=== PATIENT | male | born 1980 | race Caucasian/White ===

== ENCOUNTER 2018-10-28 10:23 | Emergency (ER) | payer OTHER ==
[2018-10-28] MEDS: NS 0.9% 1000 ML** 1,000 ML IV ONE ×2 (11:05→12:16)
[2018-10-28] MEDS: Ondansetron INJ* 2 MG/ML VIAL IV ONE (11:06)
--- NOTE | 2018-10-28 11:10 | ED ---
Nausea/Vomiting/Diarrhea HPI - HPI Summary HPI Summary: Patient is an otherwise healthy 37-year-old male who presents to the ED with a 40 hour history of nausea, vomiting, diarrhea. He states the last episode of emesis was this morning upon awakening, however previous to that it was approximately every 2-3 hours. He is endorsing diarrhea every hour. He had similar symptoms approximately 3 years ago and needed to come to the ED at that time to replete his fluids. He states he felt immediately better following this. He denies any recent illness otherwise. He states symptoms began after his and daughter were ill. He denies any abdominal pain. He denies any diarrhea which is malodorous or green or yellow in color. Denies recent antibiotic use. Denies any CP or SOB. Denies any fevers, however has been endorsing sweats and chills. He endorses extreme fatigue secondary to the nausea and vomiting. He has been unable to keep food or liquid down 40 hours. Last by mouth intake was approximately 4 hours ago in which he tried to drink a small amount of water and eat some toast. Patient is otherwise healthy and takes no medications. Denies allergies. - History of Current Complaint Chief Complaint: EDNauseaVomitDiarrh Stated Complaint: DIARRHEA COMMING FROM DOC OFFICE PER PT Time Seen by Provider: 10/28/18 10:37 Hx Obtained From: Patient Onset/Duration: Gradual Onset Timing: Constant Severity Initially: Moderate Severity Currently: Moderate Pain Intensity: 3 Pain Scale Used: 0-10 Numeric Aggravating Factor(s): Food Alleviating Factor(s): Nothing Vomiting Frequency: Every 3-4 hours Nausea/Vomiting Duration: 24-36 hours Diarrhea Presence: Yes Diarrhea Frequency: Every 1-2 hours Diarrhea Duration: 24-36 hours - Risk Factors Influenza Risk Factors: Negative - Allergies/Home Medications Allergies/Adverse Reactions: Allergies Allergy/AdvReac Type Severity Reaction Status Date / Time No Known Allergies Allergy Verified 10/28/18 10:29 Home Medications: Home Medications NK [No Home Medications Reported] 10/28/18 [History Confirmed 10/28/18] PMH/Surg Hx/FS Hx/Imm Hx Previously Healthy: Yes - Immunization History Hx Pertussis Vaccination: No Immunizations Up to Date: Yes Infectious Disease History: No Infectious Disease History: Denies: Traveled Outside the [place] in Last 30 Days - Social History Occupation: Employed Full-time Lives: With Family Alcohol Use: Weekly Hx Substance Use: No Substance Use Type: Reports: None Hx Tobacco Use: No Smoking Status (MU): Never Smoked Tobacco Review of Systems Constitutional: Negative Negative: Fever, Chills, Fatigue, Skin Diaphoresis Negative: Palpitations, Chest Pain Negative: Shortness Of Breath, Cough Positive: Vomiting, Diarrhea Negative: Arthralgia, Myalgia Negative: Rash, Bruising Neurological: Negative All Other Systems Reviewed And Are Negative: Yes Physical Exam Triage Information Reviewed: Yes Vital Signs On Initial Exam: Initial Vitals Temp Pulse Resp BP Pulse Ox 97.1 F 78 18 130/97 98 10/28/18 10:28 10/28/18 10:28 10/28/18 10:28 10/28/18 10:28 10/28/18 10:28 Vital Signs Reviewed: Yes Appearance: Positive: Well-Appearing, Well-Nourished Skin: Positive: Skin Color Reflects Adequate Perfusion Head/Face: Positive: Normal Head/Face Inspection Eyes: Positive: EOMI, Conjunctiva Clear Neck: Positive: Supple, No Lymphadenopathy Respiratory/Lung Sounds: Positive: Clear to Auscultation, Breath Sounds Present Cardiovascular: Positive: RRR, Pulses are Symmetrical in both Upper and Lower Extremities Musculoskeletal: Positive: Normal, Strength/ROM Intact Neurological: Positive: Sensory/Motor Intact, Alert, Oriented to Person Place, Time, Speech Normal Psychiatric: Positive: Affect/Mood Appropriate AVPU Assessment: Alert Diagnostics - Vital Signs Vital Signs Temp Pulse Resp BP Pulse Ox 10/28/18 10:28 97.1 F 78 18 130/97 98 - Laboratory Result Diagrams: 10/28/18 07:43 10/28/18 11:09 Lab Statement: Any lab studies that have been ordered have been reviewed, and results considered in the medical decision making process. Naus/Vom/Diarrhea Course/Dx - Course Course Of Treatment: Patient's evaluated for nausea, vomiting, diarrhea 40 hours. Last episode of diarrhea was approximately 1 hour ago. Last episode of emesis was about 24 hours ago. He is given 2 L fluids and Zofran. labs obtained and are WNL. UA and stool culture obtained. these are negative for any findings. Discussed with patient and patient states he is feeling much improved. He will be discharged with nausea, vomiting, diarrhea. - Differential Dx/Diagnosis Differential Diagnoses - Male: Diverticulitis, Irritable Bowel Syndrome, Gastroenteritis (Viral), Gastroenteritis (Bacterial), Dehydration Provider Diagnosis: Nausea and vomiting, Diarrhea Condition At Discharge: Stable Discharge - Sign-Out/Discharge Documenting (check all that apply): Patient Departure Patient Received Moderate/Deep Sedation with Procedure: No - Discharge Plan Condition: Stable Disposition: HOME Patient Education Materials: Acute Nausea and Vomiting (ED) Referrals: Jenny Smith PA [Primary Care Provider] - Additional Instructions: Drink plenty of fluids including gatorade Crackers/rice/bland diet for now Zofran as needed for nausea - Billing Disposition and Condition Condition: STABLE Disposition: Home - Attestation Statements Provider Attestation: I was available for consult. This patient was seen by the EDWINA. The patient was not presented to, seen by, or examined by me. -Arin
[2018-10-28 11:22] LABS: ABS Lymphocytes 1.2 10^3/ul (1.0-4.8); ABS Neutrophils 3.5 10^3/ul (1.5-7.7); Eosinophil % 0.8 %; Hematocrit 51 % (42-52); Hemoglobin 17.4 g/dL (14.0-18.0); Lymphocyte % 21.1 %; Mean Corpuscular HGB Conc 34 g/dL (31-36); Mean Corpuscular Hemoglobin 30 pg (27-31); Mean Corpuscular Volume 88 fL (80-94); Mean Platelet Volume 10.2 fL (7.4-10.4); Platelet Count 147 10^3/uL (150-450); Red Blood Count 5.86 10^6 /uL (4.18-5.48); Red Cell Distribution Width 14 % (10.5-15); White Blood Count 5.8 10^3/uL (3.5-10.8)
[2018-10-28 11:38] LABS: INR 1.19 (0.82-1.09)
[2018-10-28 11:50] LABS: Albumin 4.8 g/dL (3.2-5.2); Albumin/Globulin Ratio 1.7 (1-3); BUN/Creatinine Ratio 19.7 (8-20); C Reactive Protein 21.23 mg/L (<8.01); Calcium 9.8 mg/dL (8.6-10.3); EGFR African American 76.8 (>60); EGFR Non-African American 63.5 (>60); Globulin 2.8 g/dL (2-4); Potassium 3.9 mmol/L (3.5-5.0); Total Bilirubin 0.6 mg/dL (0.2-1.0); Total Protein 7.6 g/dL (6.4-8.9)
[2018-10-28 15:06] LABS: Urine Appearance Cloudy; Urine Bacteria Absent (Absent); Urine Bilirubin Negative (Negative); Urine Blood Negative (Negative); Urine Color Amber; Urine Glucose Negative (Negative); Urine Ketones Trace (Negative); Urine Nitrite Negative (Negative); Urine Protein 1+(30 mg/dL) (Negative); Urine Red Blood Cell Trace(0-2/hpf) (Absent); Urine Specific Gravity 1.031 (1.010-1.030); Urine Urobilinogen Negative (Negative); Urine White Blood Cell Trace(0-5/hpf) (Absent)
[2018-10-28 16:47] VITALS: BP 135/81
== END 2018-10-28 16:46 | disposition home or self-care (01) ==
LOC: ED 10:23
DX: R11.2 Nausea with vomiting, unspecified (principal); R19.7 Diarrhea, unspecified
CPT/HCPCS: 36415; 80053; 81003; 81015; 83605; 83690; 83735; 85025; 85610; 86140; 87045; 87046; 87077; 87086; 87493; 87899; 96361; 96374; 99282; J2405